=== PATIENT | female | born 1950 | race Caucasian/White ===

== ENCOUNTER 2016-12-06 17:33 | Emergency (ER) | payer OTHER ==
[~2016-12-06] VITALS: Ht 160 cm; Wt 54.4 kg
[2016-12-06 17:37] VITALS: BP 127/76
[2016-12-06] MEDS ORDERED: COZAAR 25 MG TA25 MG PO (17:39)
[2016-12-06] MEDS ORDERED: LEVOTHYROXIN0.025 MG PO (17:39)
[2016-12-06] MEDS ORDERED: LIPITOR10 MG PO (17:39)
[2016-12-06] MEDS ORDERED: UNICOMPLEX M TA1 TA1 PO (17:39)
[2016-12-06] MEDS ORDERED: FISH OIL 1,001000 M2 PO (17:39)
== END 2016-12-06 18:51 | disposition home or self-care (01) ==
LOC: ER 17:33
DX: S61.214A Laceration without foreign body of right ring finger without damage to nail, initial encounter (principal); W45.8XXA Other foreign body or object entering through skin, initial encounter; Y93.89 Activity, other specified; Y92.89 Other specified places as the place of occurrence of the external cause; Y99.8 Other external cause status

== ENCOUNTER 2019-01-07 22:02 | Emergency (ER) | payer OTHER ==
[~2019-01-07] VITALS: Ht 160 cm; Wt 63.5 kg
[~2019-01-07 22:02] MED LIST: COZAAR 25 MG TA25 MG PO; FISH OIL 1,001000 M2 PO; LEVOTHYROXIN0.025 MG PO; LIPITOR10 MG PO; UNICOMPLEX M TA1 TA1 PO
[2019-01-07 22:10] VITALS: BP 132/76
[2019-01-07] MEDS ORDERED: TOPAMAX 25 MG T25 M1 PO (22:19)
[2019-01-07] MEDS ORDERED: WELLBUTRIN SR150 MG PO (22:20)
[2019-01-07] MEDS ORDERED: ASPIR 8181 MG PO (22:20)
[2019-01-07] MEDS ORDERED: MOXIFLOXACIN3 ML OPHTHALMIC (22:44)
== END 2019-01-07 22:51 | disposition home or self-care (01) ==
LOC: ER 22:02
DX: S05.01XA Injury of conjunctiva and corneal abrasion without foreign body, right eye, initial encounter (principal); I10 Essential (primary) hypertension; Z88.0 Allergy status to penicillin; Z88.8 Allergy status to other drugs, medicaments and biological substances; X58.XXXA Exposure to other specified factors, initial encounter; Y92.89 Other specified places as the place of occurrence of the external cause; Y93.89 Activity, other specified; Y99.8 Other external cause status